=== PATIENT | male | born 1950 | race Caucasian/White ===

== ENCOUNTER 2017-12-12 06:15 | Day surgery (SDC) | payer MEDICARE ==
[~2017-12-12 06:15] MED LIST: ADULT ASPIRIN R81 MG PO; AMLODIPINE5 MG PO; BL ADULT ASA81 MG PO; CETIRIZINE5 MG PO; CIPROFLOXACN500 MG PO; CRESTOR10 MG PO; ENALAPRIL5 MG PO; GLIPIZIDE10 M2 PO; GLIPIZIDE10 MG PO; GLYBURIDE2.5 MG PO; GLYBURIDE5 MG PO; HYDROCHLOROT12.5 MG PO; HYDROXYZ HCL25 MG PO; MEDDOSEPAK PO; METFORMIN1000 MG PO; METFORMIN500 MG PO; MULTIVITAMI9 OR; MUPIROCIN2 % EX; SOLU-MEDROL125 MG IM; SPIRONOLACTONE25 MG PO; TRIAMCINOLON0.11 EX; VICTOZA18 MG/3 ML SC; VITAMIN D2 PO; ZYRTEC10 MG PO
[2017-12-12 10:03] VITALS: BP 121/72
== END 2017-12-12 10:14 | disposition home or self-care (01) ==
LOC: ENDO 06:15
PROVIDERS: ATTEND Internal Medicine Gastroenterology
PROC: 0DJD8ZZ Inspection of Lower Intestinal Tract, Via Natural or Artificial Opening Endoscopic (ICD-10-PCS; principal; 2017-12-12)
DX: Z12.11 Encounter for screening for malignant neoplasm of colon (principal); K64.8 Other hemorrhoids; K64.4 Residual hemorrhoidal skin tags; I10 Essential (primary) hypertension; E11.9 Type 2 diabetes mellitus without complications; E78.00 Pure hypercholesterolemia, unspecified; Z85.46 Personal history of malignant neoplasm of prostate